=== PATIENT | female | born 1970 | race Caucasian/White ===

== ENCOUNTER 2025-02-10 16:14 | Emergency (ER) | payer MEDICARE, OTHER ==
[~2025-02-10] VITALS: Ht 139.7 cm; Wt 62.5 kg
[2025-02-10 17:36] VITALS: BP 101/69; PULSE 92; RESP 15; TEMP 98.1; O2SAT 95
[2025-02-10] MEDS: ACETAMINOPHEN 500 MG TABLET PO ONE (18:19)
== END 2025-02-10 18:49 | disposition home or self-care (01) ==
LOC: EMS 16:14
DX: M54.6 Pain in thoracic spine (principal); G81.94 Hemiplegia, unspecified affecting left nondominant side; I61.9 Nontraumatic intracerebral hemorrhage, unspecified; Z99.3 Dependence on wheelchair
CPT/HCPCS: 99283